=== PATIENT | female | born 1970 | race Caucasian/White ===

== ENCOUNTER → 2016-12-10 | Outpatient (CLI) | payer OTHER ==
[~2016-12-10] MED LIST: IOPAMIDOL (ISOVUE-300) 100 ML BTL ONE
== END ==
LOC: CIMAGING 13:43
PROVIDERS: ATTEND Internal Medicine
DX: K59.00 Constipation, unspecified (principal); N83.02 Follicular cyst of left ovary; K57.30 Diverticulosis of large intestine without perforation or abscess without bleeding
CPT/HCPCS: 74177-PO; Q9967

== ENCOUNTER → 2017-02-01 | Outpatient (CLI) | payer OTHER | LOC: CIMAGING 09:57 | PROVIDERS: ATTEND Internal Medicine | DX: M25.561 Pain in right knee (principal) | CPT/HCPCS: 73562-PO; 73565-PO ==

== ENCOUNTER → 2017-02-05 | Outpatient (CLI) | payer OTHER | LOC: CIMAGING 12:43 | PROVIDERS: ATTEND Internal Medicine | DX: M25.561 Pain in right knee (principal) | CPT/HCPCS: 73560-PO ==